=== PATIENT | female | born 1945 | race Caucasian/White ===

== ENCOUNTER 2017-03-22 06:12 | Day surgery (SDC) | payer OTHER ==
--- NOTE | 2017-03-21 12:31 | HP ---
Satellite [facility] - Chief Complaint Chief Complaint: Pt has an endometrial polyp with a thickened endometrium History of Present Illness: Pt had a recent sonogram which revealed an endometrila polyp and fluid within the uterus. History Source: Patient Limitations to Obtaining History: No Limitations - Past Medical History [employer]: Yes: Migraine Cardiovascular: Yes: Hyperlipdemia Pulmonary: No: Asthma, Bronchitis, Cancer, COPD, O2 Dependent, Pneumonia, Previously Intubated, Pulmonary Embolus, Pulmonary Fibrosis, Sleep Apnea, Other Gastrointestinal: No: Ascites, Cancer, Constipation, Crohn's Disease, Diverticulitis, Diverticulosis, Esophageal Varices, Gastritis, GERD, GI Bleed, Hemorrhoids, Hiatal Hernia, Inflamatory Bowel Disease, Irritable Bowel Disease, Pancreatitis, Peptic Ulcer Disease, Ulcerative Colitis, Other Hepatobiliary: No: Cirrhosis, Cholelithiasis, Cholecystitis, Choledocholithiasis , Hepatitis A, Hepatitis B, Hepatitis C, Other Renal/: No: Renal Failure, Renal Inusuff, BPH, Cancer, Hematuria, Hemodialysis , Neurogenic Bladder, Renal Calculi, UTI, Other ...: No ...: 3 ...Para: 3 Heme/Onc: No: Anemia, B12 Deficiency, Bleeding Disorder, Cancer, Current Chemotherapy, Current Radiation Therapy, Hemochromatosis, Hypercoaguable State, Myeloproliferative Synd, Sickle Cell Disease, Sickle Cell Trait, Thrombocytopenia, Other Infectious Disease: No: AIDS, C-Diff, Herpes Zoster, HIV, MRSA, STD's, Tuberculosis, VREF, Other Musculoskeletal: No: Bursitis, Chronic low back pain, Hemiparesis, Hemiplegia, Osteoarthritis, Paraplegia, Other Rheumatology: No: Fibromyalgia, Gout, Lupus, Rheumatoid Arthritis, Sarcoidosis, Vasculitis, Other ENT: No: Allergic Rhinitis, Sinusitis, Other Endocrine: No: [place]'s Disease, Oakesdale's Disease, Diabetes Insipidus, Diabetes Mellitus, Hyperparathyroidism, Hyperthyroidism, Hypothyroidism, Osteopenia, SIADH, Other Dermatology: No: Basal Cell, Cellulitis, Eczema, Melanoma, Psoriasis, Squamous Cell, Other Satellite Physical Exam - Physical Examination General Appearance: Well Nourished, Well Developed, Alert & Oriented x3 ENT: Clear, No Discharge, No masses Lung: Clear to auscultation Heart: Regular rate & rhythm, Normal S1, Normal S2 Breasts: Soft, Non-Tender, No masses bilaterally Abdomen: Soft, No tenderness, No CVA Extremities: No edema, No tenderness/swelling Pelvic Exam: Within normal limits External Genitalia, Within normal limits Vagina, Within normal limits Cervix, Within normal limits Uterus, Within normal limits [place] Neurological: Intact, Alert, Oriented Satellite Impression/Plan - Impression/Plan Impression: Thickened endometrium probably due to an endometrial polyp Operative Procedure: Hysteroscopy with polypectomy and D/C Date to be Performed: 03/22/17
[2017-03-21 15:16] VITALS: BMI 25.4
[2017-03-22] MEDS ORDERED: PROPOFOL 20 ML ONE ×2 (07:15)
[2017-03-22] MEDS ORDERED: SUCCINYLCHOLINE CHLORIDE 200 MG/10 ML VIAL ONE (07:15)
[2017-03-22] MEDS ORDERED: MIDAZOLAM HCL 2 MG/2 ML SINGLE DOSE VIAL ONE (07:15)
[2017-03-22] MEDS ORDERED: DEXAMETHASONE SOD PHOSPHATE 4 MG/1 ML VIAL ONE (07:48)
[2017-03-22] MEDS ORDERED: LIDOCAINE HCL/PF 2% SDV 5ML VIAL ONE (07:48)
[2017-03-22] MEDS ORDERED: ONDANSETRON 4 MG/2 ML VIAL ONE (07:48)
[2017-03-22] MEDS ORDERED: KETOROLAC TROMETHAMINE 30 MG/1 ML VIAL ONE (08:12)
[2017-03-22] MEDS ORDERED: ACETAMINOPHEN 325 MG TABLET (FP) PO PRN (08:26)
[2017-03-22] MEDS ORDERED: LACTATED RINGERS SOLUTION 1,000 ML IV SCH (08:30)
--- NOTE | 2017-03-22 08:42 | OP ---
DATE OF OPERATION: 03/22/2017 PREOPERATIVE DIAGNOSIS: Thickened endometrium, probable endometrial polyp. POSTOPERATIVE DIAGNOSIS: Endometrial polyp. OPERATIVE PROCEDURE: Hysteroscopy, polypectomy, dilatation and curettage. SURGEON: Elias Medina MD ANESTHESIA: MAC given by the anesthesiologist. ESTIMATED BLOOD LOSS: 1 mL. DESCRIPTION OF PROCEDURE: This patient was brought to the operating room, placed in the supine position, given anesthesia by the anesthesiologist, placed in the lithotomy position, prepped and draped in the usual manner for dilatation and curettage hysteroscopy. The patient was then placed in the lithotomy position. Speculum was placed into the vagina. The anterior lip of the cervix was grasped with a tenaculum. The cervix was sounded to 6 cm. The cervix was then dilated with Biggs dilators. Hysteroscopy was then performed. The patient was noted to have a small polyp in the fundal area. The rest of the endometrium was atrophic in appearance. A polypectomy was carried out using a polyp forceps, and a dilatation and curettage was carried out using a small curette. The patient tolerated the procedure well. The hemostasis was very good. The estimated blood loss was approximately 1 mL. After the procedure was completed, the patient was transferred to the recovery room with stable vital signs and good hemostasis. Anitha [id number]
[2017-03-22 11:55] VITALS: BP 118/60; PULSE 80; TEMP 97.7
--- NOTE | 2017-03-23 13:41 | PATH ---
Surgical Pathology Report Patient Name: [facility]. Rec. #: [id number] /Age/Gender: 1945 (Age: 71) / F Account: [id number] Location: [facility] SURGICAL Taken: 03/22/2017 Received: 03/22/2017 Reported: 03/23/2017 Physicians: Elias Medina M.D. Specimen(s) Received A: ENDOMETRIAL POLYP B: ENDOMETRIAL CURETTINGS Clinical History Endometrial polyp, thickened endometrium Final Diagnosis A. ENDOMETRIAL POLYP, POLYPECTOMY: CONSISTENT WITH ENDOMETRIAL POLYP. B. ENDOMETRIUM, CURETTAGE: STRIPS OF ATROPHIC ENDOMETRIUM. FRAGMENTS OF BENIGN ENDOCERVICAL TISSUE. FRAGMENTS OF BENIGN SQUAMOUS EPITHELIUM. Electronically Signed Twin Elizabeth M.D. Gross Description A. Received in formalin, labeled "endometrial polyp" is a salter, irregular portion of soft tissue measuring 0.6 cm in greatest dimension. The specimen is submitted in toto in one cassette. B. Received in formalin labeled "endometrial curettings" is a 1.3 x 0.8 x 0.2 cm aggregate of blood-tinged mucus, possibly containing soft tissue fragments. The formalin is filtered and the specimen is entirely submitted in one cassette. /03/22/2017 saudi03/22/2017
== END 2017-03-22 10:30 | disposition home or self-care (01) ==
LOC: JASU-SURG 06:12
PROVIDERS: ATTEND Obstetrics & Gynecology
PROC: 0UB98ZX Excision of Uterus, Via Natural or Artificial Opening Endoscopic, Diagnostic (ICD-10-PCS; principal; 2017-03-22 07:30)
PROC: 0UDB8ZX Extraction of Endometrium, Via Natural or Artificial Opening Endoscopic, Diagnostic (ICD-10-PCS; 2017-03-22 07:30)
DX: N84.0 Polyp of corpus uteri (principal)
CPT/HCPCS: 88305-TC; 94760